=== PATIENT | male | born 1955 | race Two or more races ===

== ENCOUNTER 2025-01-19 12:07 | Emergency (ER) | payer MEDICARE, MEDICAID ==
[~2025-01-19] VITALS: Ht 157.5 cm; Wt 96.9 kg
[2025-01-19 13:55] LABS: Hematocrit 42.0 % (41.0-53.0); Hemoglobin 14.6 g/dL (13.5-17.5); Mean Corpuscular Hemoglobin 31.1 pg (28.0-32.0); Mean Corpuscular Volume 89.3 fL (80.0-100.0); Nucleated Red Blood Cells % 0.1 %
--- NOTE | 2025-01-19 13:55 | DVH ---
Indication: rectal bleed Technique: CT axial images of the abdomen and pelvis are obtained without contrast. Coronal and sagit kuldip reformats were obtained. Radiation Dose Information: CTDI volume is 25 mGy. Dose-length product is 1359 mGy*cm Comparison: None FINDINGS: There is limited interpretation of the abdomen and pelvis without administration of intravenous contr ast. Lung bases demonstrate atelectasis. Right hilar calcified lymph nodes consistent with remote granulom atous disease. Adrenal glands, spleen, pancreas unremarkable in shape. Hepatic steatosis. Cholelithiasis. The bilateral kidneys demonstrate no hydronephrosis / nephrolithiasis. Moderate gastric distention. Small bowel loops are normal in caliber. Small hiatal hernia. Colonic diverticula. Moderate volume stool in the colon. Normal appendix. Abdominal aortic atherosclerotic disease. Bladder partially distended. Prostate measures 5.6 cm hare sversely. No free pelvic fluid. No inguinal lymphadenopathy. Moderate bilateral sacroiliac degenerative joint disease. Moderate thoracolumbar degenerative disc di sease. L5 pars defects.m Small fat containing paraumbilical hernia 1.9 cm. IMPRESSION: Limited evaluation without contrast. Moderate volume stool within the colon. Colonic diverticular disease. Cholelithiasis. Hepatic steatosis. Prostatomegaly. Correlate with PSA levels. Other findings as described
[2025-01-19 14:13] LABS: Alanine Aminotransferase 25 U/L (7-40); Anion Gap 9 (5-15); BUN/Creatinine Ratio 10.3 (10.0-20.0); Blood Urea Nitrogen 18 mg/dL (9-23); Calcium 9.2 mg/dL (8.7-10.4); Carbon Dioxide 25 mmol/L (20-31); Chloride 106 mmol/L (98-107); Glucose 102 mg/dL (74-106); Potassium 4.0 mmol/L (3.5-5.1); Sodium 140 mmol/L (136-145); Total Protein 7.5 g/dL (5.7-8.2)
[2025-01-19 14:14] LABS: Albumin 4.8 g/dL (3.2-4.8); Alkaline Phosphatase 46 U/L (46-116); Bilirubin, Total 0.3 mg/dL (0.2-1.0)
--- NOTE | 2025-01-19 15:23 | ED.PDOC ---
GI ASSESSMENT HPI Comments HPI: Poor Historian. 69-year-old male presents to emergency depart for evaluation of blood per rectum in the last few days. Patient states that he has been straining with the his bowel movements lately. He says that the stool is normal in color. Patient is not on any blood thinners. Denies any diarrhea or abdominal pain or fever. Denies any nausea or vomiting. Patient is on baby aspirin. Past Medical History: Hypertension, hyperlipidemia, fatty liver, enlarged prostate Past Surgical History: Hernia repair No known drug allergies. REVIEW OF SYSTEMS: CONSTITUTIONAL: Denies acute: fever, diaphoresis, chills, generalized weakness. HEAD: Denies acute: headache, photophobia Eyes: Denies acute: Double vision, vision loss, eye pain, eye discharge. EARS: Denies acute: tinnitus, hearing loss, ear discharge, ear pain, THROAT: Denies acute: sore throat, swelling, difficulty swallowing , pain with swallowing, change in voice. NECK: Denies acute: neck pain, neck swelling, stiff neck. HEART: Denies acute : chest pain, palpitations, LUNGS: Denies acute: SOB, wheezing, cough, hemoptysis ABDOMEN: Denies acute: abdominal pain, Nausea, Vomiting, diarrhea, melena , hematemesis, SKIN: Denies acute: rash, redness, lesions, itchiness. EXTREMITIES: Denies acute: calf pain, numbness, tingling, weakness, denies pain in extremity. Denies acute: Low back pain. Neuro: Denies acute: focal neurological deficit, motor or sensory focal neurological deficit, tremors, seizure like activity, confusion, dizziness, change in mental status, loss of bowel or bladder function, cauda equina like symptoms. : Denies acute: dysuria, hematuria, flank pain, increase in urinary frequency. PSYCH: Denies acute: hallucination, suicidal ideation, homicidal ideation. PHYSICAL EXAM: General: --no------acute distress, awake and alert. Head: normocephalic, atraumatic. Neck: supple, trachea is midline, no swelling. Throat: Normal phonation. Eyes:, no erythema, no purulent discharge, no proptosis, no icterus. Heart: regular rate, regular rhythm, no significant murmur appreciated. Lungs: no apparent respiratory distress, Able to speak in full sentences. No wheezing, no rhonchi, no crackles. No stridors Clear to auscultation bilaterally. Abdomen: non tender to palpation, non distended, soft, no guarding, no rebound, + bowel sounds. Neuro: Awake, Alert, oriented to name, self, situation, follows commands GCS=15. Speech is normal. Skin: no petechia, no purpura, no cyanosis, non-pale, not jaundice. Lower extremities: --no - Pitting edema no deformity, no focal swelling, no calf TTP. Makes eye contact. moves all four extremities. Face: no apparent facial droop. Ambulating in the ED independently. ED COURSE: DISCLAIMER: This medical document was created using an electronic medical record system with voice recognition software and computerized dictation system. Although this d ocument has been carefully reviewed, there might still be some phonetic and typographical errors. Occasional wrong-word or "sound-alike" substitutions may have occurred due to the inherent limitations of voice recognition software. These areas are purely typographical due to imperfections of the software programs and do not reflect any compromise in the patient's medical care. Please read the chart carefully and recognize, using context, where these substitutions have occurred. Chief Complaint: Rectal Pain Time Seen by MD: 12:14 Reviewed Notes: Nurses Notes, Allergies Allergies: Coded Allergies: NO KNOWN ALLERGIES (Unverified , 01/19/25) Information Source: Patient Mode of Arrival: Ambulatory X-Ray, Labs, Meds, VS Vital Signs Date Time Temp Pulse Resp B/P (MAP) Pulse Ox O2 Delivery O2 Flow Rate FiO2 01/19/25 14:39 98.2 66 18 137/64 (88) 95 98.2 01/19/25 13:06 98.5 71 16 135/76 (95) 96 98.5 Lab Test 01/19/25 13:40 Range/Units White Blood Count 8.1 4.4-10.8 10^3/uL Red Blood Count 4.70 4.5-5.90 10^6/uL Hemoglobin 14.6 13.5-17.5 g/dL Hematocrit 42.0 41.0-53.0 % Mean Corpuscular Volume 89.3 80.0-100.0 fL Mean Corpuscular Hemoglobin 31.1 28.0-32.0 pg Mean Corpuscular Hemoglobin Concent 34.8 32.0-36.0 g/dL Red Cell Distribution Width 13.3 11.8-14.3 % Platelet Count 363 140-450 10^3/uL Mean Platelet Volume 7.3 6.9-10.8 fL Neutrophils (%) (Auto) 45.4 37.0-80.0 % Lymphocytes (%) (Auto) 41.7 10.0-50.0 % Monocytes (%) (Auto) 8.2 0.0-12.0 % Eosinophils (%) (Auto) 4.1 0.0-7.0 % Basophils (%) (Auto) 0.6 0.0-2.0 % Neutrophils # (Auto) 3.7 1.6-8.6 10 ^3/uL Lymphocytes # (Auto) 3.4 0.4-5.4 10 ^3/uL Monocytes # (Auto) 0.7 0-1.3 10 ^3/uL Eosinophils # (Auto) 0.3 0-0.8 10 ^3/uL Basophils # (Auto) 0 0-0.2 10 ^3/uL Nucleated Red Blood Cells 0.1 % Sodium Level 140 136-145 mmol/L Potassium Level 4.0 3.5-5.1 mmol/L Chloride Level 106 98-107 mmol/L Carbon Dioxide Level 25 20-31 mmol/L Anion Gap 9 5-15 Blood Urea Nitrogen 18 9-23 mg/dL Creatinine 1.74 H 0.700-1.30 mg/dL Glomerular Filtration Rate Calc 42 >90 mL/min BUN/Creatinine Ratio 10.3 10.0-20.0 Serum Glucose 102 74-106 mg/dL Calcium Level 9.2 8.7-10.4 mg/dL Total Bilirubin 0.3 0.2-1.0 mg/dL Aspartate Amino Transferase (AST) 27 13-40 U/L Alanine Aminotransferase (ALT) 25 7-40 U/L Alkaline Phosphatase 46 46-116 U/L Total Protein 7.5 5.7-8.2 g/dL Albumin 4.8 3.2-4.8 g/dL [facility] [address] [facility] [address] Ph: [phone] DIAGNOSTIC IMAGING Diagnostic Imaging Report : [id number] Signed PATIENT: LAMONTE WAGNER ACCT: [id number] UNIT: [id number] : 1955 LOC: ER ROOM / BED: / AGE / SEX: 69 / M ADM STATUS: REG ER SERVICE 1313 ORDERING PHYSICIAN: RAFAEL YADAV DO PROCEDURE(s): ABPL - CT AB PEL WO CON-NO ORAL OR IV REASON: rectal bleed ORDER NUMBER(s): [id number], ACCESSION NUMBER(s): [id number] Indication: rectal bleed Technique: CT axial images of the abdomen and pelvis are obtained without contrast. Coronal and sagittal reformats were obtained. Radiation Dose Information: CTDI volume is 25 mGy. Dose-length product is 1359 mGy*cm Comparison: None FINDINGS: There is limited interpretation of the abdomen and pelvis without administration of intravenous contrast. Lung bases demonstrate atelectasis. Right hilar calcified lymph nodes consistent with remote granulomatous disease. Adrenal glands, spleen, pancreas unremarkable in shape. Hepatic steatosis. Cholelithiasis. The bilateral kidneys demonstrate no hydronephrosis / nephrolithiasis. Moderate gastric distention. Small bowel loops are normal in caliber. Small hiatal hernia. Colonic diverticula. Moderate volume stool in the colon. Normal appendix. Abdominal aortic atherosclerotic disease. Bladder partially distended. Prostate measures 5.6 cm transversely. No free pelvic fluid. No inguinal lymphadenopathy. Moderate bilateral sacroiliac degenerative joint disease. Moderate thoracolumbar degenerative disc disease. L5 pars defects.m Small fat containing paraumbilical hernia 1.9 cm. IMPRESSION: Limited evaluation without contrast. Moderate volume stool within the colon. Colonic diverticular disease. Cholelithiasis. Hepatic steatosis. Prostatomegaly. Correlate with PSA levels. Other findings as described ATED BY: NIKKIE KABA MD DICTATED DATE/TIME: 01/19/25 8140 SIGNED BY: NIKKIE KABA MD SIGNED DATE/TIME: 01/19/25 135 CC: Comments [address] [address] Ph: [phone] DIAGNOSTIC IMAGING Diagnostic Imaging Report : [id number] Signed PATIENT: LAMONTE WAGNER ACCT: [id number] UNIT: [id number] : 1955 LOC: ER ROOM / BED: / AGE / SEX: 69 / M ADM STATUS: REG ER SERVICE 1318 ORDERING PHYSICIAN: RAFAEL YADAV DO PROCEDURE(s): ABPL - CT AB PEL WO CON-NO ORAL OR IV REASON: rectal bleed ORDER NUMBER(s): [id number], ACCESSION NUMBER(s): [id number] Indication: rectal bleed Technique: CT axial images of the abdomen and pelvis are obtained without contrast. Coronal and sagittal reformats were obtained. Radiation Dose Information: CTDI volume is 25 mGy. Dose-length product is 1359 mGy*cm Comparison: None FINDINGS: There is limited interpretation of the abdomen and pelvis without administration of intravenous contrast. Lung bases demonstrate atelectasis. Right hilar calcified lymph nodes consistent with remote granulomatous disease. Adrenal glands, spleen, pancreas unremarkable in shape. Hepatic steatosis. Cholelithiasis. The bilateral kidneys demonstrate no hydronephrosis / nephrolithiasis. Moderate gastric distention. Small bowel loops are normal in caliber. Small hiatal hernia. Colonic diverticula. Moderate volume stool in the colon. Normal appendix. Abdominal aortic atherosclerotic disease. Bladder partially distended. Prostate measures 5.6 cm transversely. No free pelvic fluid. No inguinal lymphadenopathy. Moderate bilateral sacroiliac degenerative joint disease. Moderate thoracolumbar degenerative disc disease. L5 pars defects.m Small fat containing paraumbilical hernia 1.9 cm. IMPRESSION: Limited evaluation without contrast. Moderate volume stool within the colon. Colonic diverticular disease. Cholelithiasis. Hepatic steatosis. Prostatomegaly. Correlate with PSA levels. Other findings as described ATED BY: NIKKIE KABA MD DICTATED DATE/TIME: 01/19/25 1351 SIGNED BY: NIKKIE KABA MD SIGNED DATE/TIME: 01/19/25 135 CC: SEPSIS Sepsis Screen Date sepsis recognized/suspect: Jan 19, 2025 Time Sepsis recognized/suspect: 1308 Recent Procedure: No On Antibiotic Therapy: No Respiratory Rate >20: No Heart Rate >90: No Temp<36 C (96.8 F) or >38.3 C: No SBP <90 or MAP <65 mmHG: No New Acute Mental Status Change: No Is the patient on CPAP, BIPAP,: No Physician Orders Traveling Repair Accountant (01/19/25 ) Stool Occult Blood (01/19/25 13:18) Ct Ab Pel Wo Con-No Oral Or Iv (01/19/25 13:18) Vital Signs Date Time Temp Pulse Resp B/P (MAP) Pulse Ox O2 Delivery O2 Flow Rate FiO2 01/19/25 14:39 98.2 66 18 137/64 (88) 95 98.2 01/19/25 13:06 98.5 71 16 135/76 (95) 96 98.5 Laboratory Tests Test 01/19/25 13:40 White Blood Count 8.1 10^3/uL (4.4-10.8) Departure 1 Departure Time of Disposition: 15:22 Impression: Primary Impression: Rectal bleeding Additional Impressions: Enlarged prostate Constipation Disposition: HOME / SELF CARE / HOMELESS Condition: Stable Additional Instructions: Additional instructions: You MUST follow-up with your primary care/family doctor in 1 to 2 days. If you are unable to see your primary care/family doctor, please return to our emergency room for re-assessment and re-evaluation in 1 to 2 days. Return to the emergency room here in our facility or to the nearest ER [facility] if your symptoms change or worsen. CONSULTATIONS: you MUST Follow-up for consultation as soon as possible with: gastroenterology in 1-2 days. Please call for appointment. You MUST call the consultants office yourself to make an appointment. You may need to arrange that through your insurance and/or your primary/family doctor. If you are unable to see the medical consultant in 1 to 2 days, you must return to our emergency room (or any other ER of your choice) for re-assessment and re- evaluation. Adequate fluid hydration. Increase fiber intake. Repeat CBC in 48-72 hours. Below is a copy of your radiological report for follow up: [address] [address] Ph: [phone] DIAGNOSTIC IMAGING Diagnostic Imaging Report : [id number] Signed PATIENT: LAMONTE WAGNER ACCT: [id number] UNIT: [id number] : 1955 LOC: ER ROOM / BED: / AGE / SEX: 69 / M ADM STATUS: REG ER SERVICE 1318 ORDERING PHYSICIAN: RAFAEL YADAV DO PROCEDURE(s): ABPL - CT AB PEL WO CON-NO ORAL OR IV REASON: rectal bleed ORDER NUMBER(s): [id number], ACCESSION NUMBER(s): [id number] Indication: rectal bleed Technique: CT axial images of the abdomen and pelvis are obtained without contrast. Coronal and sagittal reformats were obtained. Radiation Dose Information: CTDI volume is 25 mGy. Dose-length product is 1359 mGy*cm Comparison: None FINDINGS: There is limited interpretation of the abdomen and pelvis without administration of intravenous contrast. Lung bases demonstrate atelectasis. Right hilar calcified lymph nodes consistent with remote granulomatous disease. Adrenal glands, spleen, pancreas unremarkable in shape. Hepatic steatosis. Cholelithiasis. The bilateral kidneys demonstrate no hydronephrosis / nephrolithiasis. Moderate gastric distention. Small bowel loops are normal in caliber. Small hiatal hernia. Colonic diverticula. Moderate volume stool in the colon. Normal appendix. Abdominal aortic atherosclerotic disease. Bladder partially distended. Prostate measures 5.6 cm transversely. No free pelvic fluid. No inguinal lymphadenopathy. Moderate bilateral sacroiliac degenerative joint disease. Moderate thoracolumbar degenerative disc disease. L5 pars defects.m Small fat containing paraumbilical hernia 1.9 cm. IMPRESSION: Limited evaluation without contrast. Moderate volume stool within the colon. Colonic diverticular disease. Cholelithiasis. Hepatic steatosis. Prostatomegaly. Correlate with PSA levels. Other findings as described ATED BY: NIKKIE KABA MD DICTATED DATE/TIME: 01/19/25 1354 SIGNED BY: NIKKIE KABA MD SIGNED DATE/TIME: 01/19/25 1354 CC: Discharged With: Self RAFAEL YADAV DO Jan 19, 2025 15:23
[2025-01-19 16:13] VITALS: BP 139/78; PULSE 62; RESP 18; TEMP 98.5; O2SAT 96
== END 2025-01-19 16:14 | disposition home or self-care (01) ==
LOC: ER 12:07
DX: K62.5 Hemorrhage of anus and rectum (principal); N40.0 Benign prostatic hyperplasia without lower urinary tract symptoms; K59.00 Constipation, unspecified; I10 Essential (primary) hypertension; E78.5 Hyperlipidemia, unspecified; Z98.890 Other specified postprocedural states; Z79.82 Long term (current) use of aspirin
CPT/HCPCS: 36415; 74176; 80053; 85025